=== PATIENT | female | born 1980 ===

== ENCOUNTER 2024-01-26 04:09 | Day surgery (SDC) | payer BC ==
[2024-01-25 10:14] VITALS: BMI 22.8
[2024-01-26] MEDS ORDERED: LIDOCAINE HCL 1%, 10 MG/ML (20ML VIAL) ONE (08:22)
[2024-01-26] MEDS: LIDOCAINE HCL 1%, 10 MG/ML (20ML VIAL) NR ONE ×4 (08:30→10:08)
[2024-01-26] MEDS ORDERED: ONDANSETRON 4 MG/2 ML VIAL ONE (09:11)
[2024-01-26] MEDS ORDERED: METOCLOPRAMIDE HCL INJECTION 10 MG/2 ML VIAL ONE (09:11)
[2024-01-26] MEDS ORDERED: ceFAZolin SODIUM 1 GM VIAL ONE (09:11)
[2024-01-26] MEDS ORDERED: DEXAMETHASONE SOD PHOSPHATE 4 MG/1 ML VIAL ONE (09:11)
[2024-01-26] MEDS ORDERED: LIDOCAINE HCL/PF 2% SDV 5ML VIAL ONE (09:11)
[2024-01-26] MEDS ORDERED: PROPOFOL 20 ML ONE (09:13)
[2024-01-26] MEDS ORDERED: MIDAZOLAM HCL 2 MG/2 ML SINGLE DOSE VIAL ONE (09:55)
[2024-01-26] MEDS ORDERED: FENTANYL CITRATE/PF 50 MCG/ML VIAL ONE ×2 (09:58→10:54)
[2024-01-26] MEDS ORDERED: oxyCODONE HCL 5 MG TABLET PO PRN (10:11)
[2024-01-26] MEDS ORDERED: ONDANSETRON 4 MG/2 ML VIAL IVPUSH PRN (10:11)
[2024-01-26] MEDS ORDERED: LACTATED RINGERS SOLUTION 1,000 ML IV SCH (10:15)
[2024-01-26] MEDS ORDERED: ACETAMINOPHEN INJECTION 100 ML IVPB ONE (10:37)
[2024-01-26 13:33] VITALS: RESP 20; TEMP 97.5
[2024-01-26 13:35] VITALS: BP 118/64; PULSE 62
== END 2024-01-26 12:29 | disposition home or self-care (01) ==
LOC: JASU-SURG 04:09 → EDBD 09:00 → JASU-SURG 12:29
PROVIDERS: ATTEND Surgery
PROC: 0HBU0ZX Excision of Left Breast, Open Approach, Diagnostic (ICD-10-PCS; principal; 2024-01-26 09:00)
DX: D24.2 Benign neoplasm of left breast (principal); N63.20 Unspecified lump in the left breast, unspecified quadrant
CPT/HCPCS: 81025; 88307-TC; 94760; J0131